=== PATIENT | female | born 1960 | race American Indian/Alaskan Native ===

== ENCOUNTER 2016-12-17 07:10 | Outpatient (CLI) | payer BC ==
--- NOTE | 2016-12-17 08:46 | Mammography Report ---
Bilateral mammogram: Compared to 09/04/15. CAD study utilized. Findings: Predominance adipose tissue bilaterally. Focal 4 mm density asymmetry upper mid left breast. No microcalcification. Benign axillary nodes. Impression: Focal dense asymmetry upper left breast. Recommend spot mag and if necessary sonographic examination. BI-RADS CATEGORY: 0 = Needs additional imaging evaluation ACR BI-RADS MAMMOGRAPHIC CODES: 0 = Needs additional imaging evaluation; 1 = Negative; 2 = Benign; 3 = Probably benign; 4 = Suspicious; 5 = Malignant; 6 = Known biopsy-proven malignancy COMMENT: 1. Dense breast tissue, i.e., adenosis, fibrocystic changes, etc., may obscure an underlying neoplasm. 2. Approximately 10% of cancers are not detected with mammography. 3. A negative mammography report should not delay biopsy if a clinically suspicious mass is present. COMMENT: Patient follow-up letters are generated in [email or web address].
== END 2016-12-17 07:11 | disposition home or self-care (01) ==
LOC: MAMMO 07:10
PROVIDERS: ATTEND Obstetrics & Gynecology
DX: Z12.31 Encounter for screening mammogram for malignant neoplasm of breast (principal); I10 Essential (primary) hypertension
CPT/HCPCS: 77067; G0202

== ENCOUNTER 2017-01-13 08:15 | Outpatient (CLI) | payer BC ==
--- NOTE | 2017-01-13 09:27 | Mammography Report ---
Diagnostic left mammogram. History: Recall for asymmetry seen in the MLO projection. Findings: On a spot compression image, there is satisfactory effacement of the previously noted density with no evidence of an underlying mass. The 90 degree lateral medial view also demonstrates no focal findings. The parenchyma is moderately dense. Impression: No suspicious findings. BI-RADS code: 1. Recommendation: Annual screening.
== END 2017-01-13 08:16 | disposition home or self-care (01) ==
LOC: MAMMO 08:15
PROVIDERS: ATTEND Obstetrics & Gynecology
DX: R92.8 Other abnormal and inconclusive findings on diagnostic imaging of breast (principal); I10 Essential (primary) hypertension
CPT/HCPCS: G0206-LT

== ENCOUNTER 2017-05-19 09:12 | Emergency (ER) | payer OTHER, BC ==
[2017-05-19 09:31] VITALS: BP 164/79
[2017-05-19] MEDS ORDERED: NORCO 5/325 PO ONE (10:36)
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
--- NOTE | 2017-05-19 18:10 | XRay Report ---
FINAL REPORT EXAM: XR HUMERUS 2+V LT HISTORY: swelling of the left upper arm TECHNIQUE: AP and lateral views of the left wrist PRIORS: None. FINDINGS: There is no evidence for acute fracture or dislocation. No soft tissue swelling or radiopaque foreign bodies are seen. Bony mineralization is normal and joint spaces are maintained. IMPRESSION: No acute bony or soft tissue abnormality noted.
== END 2017-05-19 11:28 | disposition home or self-care (01) ==
LOC: ED 09:12
DX: S40.022A Contusion of left upper arm, initial encounter (principal); S40.011A Contusion of right shoulder, initial encounter; V89.2XXA Person injured in unspecified motor-vehicle accident, traffic, initial encounter; Y93.89 Activity, other specified; Y92.89 Other specified places as the place of occurrence of the external cause; Y99.8 Other external cause status
CPT/HCPCS: 71020; 99284

== ENCOUNTER 2020-11-14 08:18 | Outpatient (CLI) | payer BC ==
--- NOTE | 2020-11-14 16:42 | Mammography Report ---
DIGITAL SCREENING MAMMOGRAM WITH CAD, 11/14/2020 CLINICAL INFORMATION / INDICATION: Routine screening mammography. TECHNIQUE: Digital bilateral 2D mammography was obtained in the craniocaudal and mediolateral obliqu e projections. This examination was interpreted with the benefit of Computer-Aided Detection analysis . COMPARISON: 12/17/2016, 09/04/2015 FINDINGS: Breast Density: The breasts are heterogeneously dense, which may obscure small masses. No dominant mass, suspicious calcifications, or architectural distortion in either breast. IMPRESSION: No mammographic evidence of malignancy. Follow up recommendation: Routine yearly BI-RADS Category 1: Negative. A "normal" or negative report should not discourage follow up or biopsy of a clinically significant f inding. A written summary of these findings will be mailed to the patient. The patient will be entered into a mammography reporting system which will generate a reminder letter for the patient's next appointmen t at the appropriate interval. The [employer] recommends yearly mammograms starting at age 40 and continuing as l irina as a woman is in good health. Breast MRI is recommended for women with an approximate 20-25% or greater lifetime risk of breast cancer, including women with a strong family history of breast or ova shelbie cancer or who have been treated for Hodgkin's disease. Signer Name: Rajani Rizvi MD Signed: 11/14/2020 4:37 PM Workstation Name: [id number]
== END 2020-11-14 08:19 | disposition home or self-care (01) ==
LOC: SPVWC 08:18
PROVIDERS: ATTEND Obstetrics & Gynecology
DX: Z12.31 Encounter for screening mammogram for malignant neoplasm of breast (principal)
CPT/HCPCS: 77067

== ENCOUNTER 2021-12-18 07:45 | Outpatient (CLI) | payer BC ==
--- NOTE | 2021-12-21 17:39 | Mammography Report ---
DIGITAL SCREENING MAMMOGRAM WITH CAD, 12/18/2021 CLINICAL INFORMATION / INDICATION: Routine screening mammography TECHNIQUE: Digital 2D mammography was obtained in the craniocaudal and mediolateral oblique projectio ns. This examination was interpreted with the benefit of Computer-Aided Detection analysis. COMPARISON: 11/14/2020 FINDINGS: Breast Density: The breasts are heterogeneously dense, which may obscure small masses. No dominant mass, suspicious calcifications, or architectural distortion in the right breast. In the posterior depth of the left breast centrally at approximately 3:30, 2 to 3 cm lateral to the n ipple, a new 7 mm irregular density is seen. IMPRESSION: New density on the left Follow up recommendation: Left spot compression views and ultrasound as needed BI-RADS Category 0: INCOMPLETE. Needs additional imaging evaluation and/or prior mammograms for richelle elam. A "normal" or negative report should not discourage follow up or biopsy of a clinically significant f inding. A written summary of these findings will be mailed to the patient. The patient will be entered into a mammography reporting system which will generate a reminder letter for the patient's next appointmen t at the appropriate interval. The [employer] recommends yearly mammograms starting at age 40 and continuing as l irina as a woman is in good health. Breast MRI is recommended for women with an approximate 20-25% or greater lifetime risk of breast cancer, including women with a strong family history of breast or ova shelbie cancer or who have been treated for Hodgkin's disease. Signer Name: Prudencio Montez MD Signed: 12/21/2021 5:35 PM Workstation Name: [email or web address]
== END 2021-12-18 07:46 | disposition home or self-care (01) ==
LOC: MAMMO 07:45
PROVIDERS: ATTEND Obstetrics & Gynecology
DX: Z12.31 Encounter for screening mammogram for malignant neoplasm of breast (principal)
CPT/HCPCS: 77067

== ENCOUNTER 2022-02-26 08:52 | Outpatient (CLI) | payer BC ==
--- NOTE | 2022-02-26 09:35 | Mammography Report ---
DIGITAL DIAGNOSTIC MAMMOGRAM WITH TOMOSYNTHESIS, 02/26/2022 CLINICAL INFORMATION / INDICATION: New irregular focal asymmetry in the left breast on screening mamm ography. TECHNIQUE: Digital left mammographic imaging was performed. Spot compression views were obtained. COMPARISON: Bilateral mammography 05/02/2010 through 12/18/2021. FINDINGS: Breast Density: The breasts are heterogeneously dense, which may obscure small masses. No dominant mass, suspicious calcifications or architectural distortion in the left breast. No persistent focal asymmetry is seen on additional imaging. IMPRESSION: No mammographic evidence of malignancy. Follow up recommendation: Routine yearly screening mammogram. BI-RADS Category 1: NEGATIVE. A "normal" or negative report should not discourage follow up or biopsy of a clinically significant f inding. A written summary of these findings will be mailed to the patient. The patient will be entered into a mammography reporting system which will generate a reminder letter for the patient's next appointmen t at the appropriate interval. According to the [employer], yearly mammograms are recommended starting at age 40 and continuing as long as a woman is in good health. Breast MRI is recommended for women with an evgeny roximately 20-25% or greater lifetime risk of breast cancer, including women with a strong family his tory of breast or ovarian cancer and women who have been treated for Hodgkin's disease. Signer Name: Calvin Pardo MD Signed: 02/26/2022 9:31 AM Workstation Name: [id number]
== END 2022-02-26 08:53 | disposition home or self-care (01) ==
LOC: MAMMO 08:52
PROVIDERS: ATTEND Obstetrics & Gynecology
DX: N63.23 Unspecified lump in the left breast, lower outer quadrant (principal); R92.8 Other abnormal and inconclusive findings on diagnostic imaging of breast
CPT/HCPCS: 77066